=== PATIENT | male | born 1940 | race African-American/Black ===

== ENCOUNTER 2019-11-10 15:55 | Emergency (ER) | payer OTHER ==
[~2019-11-10] VITALS: Ht 167.6 cm; Wt 95.3 kg
[2019-11-10] MEDS ORDERED: ELIQUIS5 MG PO (16:25)
[2019-11-10 17:36] LABS: ABSOLUTE NEUTROPHILS 6.3 thou/uL (1.4-8.2); BASOPHILS 0.9 % (0.0-2.0); EOSINOPHILS 3.2 % (0.0-3.0); HEMATOCRIT 43.3 % (42.0-52.0); HEMOGLOBIN 14.3 gm/dL (14.0-18.0); MCH 27.7 pg (26.0-34.0); MCHC 33.1 g/dL (28.0-37.0); MCV 83.6 fL (80.0-100.0); MONOCYTES 6.9 % (1.0-8.0); PLATELET COUNT 165 thou/uL (150-400); RBC 5.17 mil/uL (4.50-6.00); RDW 14.8 % (10.5-14.5); WBC 8.4 thou/uL (4.0-11.0)
[2019-11-10 17:47] LABS: CALCIUM 9.5 mg/dL (8.5-10.1); CREATININE 1.3 mg/dL (0.7-1.3); POTASSIUM 4.2 mmol/L (3.5-5.1)
[2019-11-10 17:53] LABS: TOTAL BILIRUBIN 0.6 mg/dL (<0.1-1.0); TOTAL PROTEIN 8.4 g/dL (6.4-8.2); URIC ACID* 7.3 mg/dL (2.6-7.2)
[2019-11-10] MEDS ORDERED: PREDNISONE 20 M20 M1 PO (18:13)
[2019-11-10] MEDS ORDERED: NORCO 5-325 TA1 EAC1 PO (18:13)
[2019-11-10] MEDS ORDERED: MITIGARE0.6 MG PO (18:13)
[2019-11-10 18:48] VITALS: BP 156/79
== END 2019-11-10 18:43 | disposition home or self-care (01) ==
LOC: ER 15:55
PROVIDERS: Physician Assistant
DX: M10.9 Gout, unspecified (principal); I10 Essential (primary) hypertension; F17.210 Nicotine dependence, cigarettes, uncomplicated; Z86.718 Personal history of other venous thrombosis and embolism